=== PATIENT | female | born 2000 | race Caucasian/White ===

== ENCOUNTER 2023-04-22 16:22 | Emergency (ER) | payer SELFPAY ==
[~2023-04-22] VITALS: Ht 165.1 cm; Wt 109.1 kg
[2023-04-22 16:32] VITALS: TEMP 98.5
[2023-04-22] MEDS ORDERED: AMOXICILLIN 8751 TAB PO (17:32)
[2023-04-22 18:16] VITALS: BP 130/84; PULSE 77
== END 2023-04-22 18:15 | disposition home or self-care (01) ==
LOC: COL.ER 16:22
DX: S61.254A Open bite of right ring finger without damage to nail, initial encounter (principal); W54.0XXA Bitten by dog, initial encounter